=== PATIENT | male | born 1960 | race Two or more races ===

== ENCOUNTER 2019-06-28 01:51 | Emergency (ER) | payer MEDICAID ==
[~2019-06-28] VITALS: Ht 175.3 cm; Wt 80.7 kg
[2019-06-28 02:28] VITALS: BP 173/82
[2019-06-28] MEDS ORDERED: AMLODIPINE 5 MG TABLET ONE (02:28)
[2019-06-28] MEDS ORDERED: ACETAMINOPHEN ES 500 MG TABLET ONE (02:28)
[2019-06-28] MEDS ORDERED: KETOROLAC TROMETHAMINE 15 MG INJ ONE (02:28)
[2019-06-28] MEDS ORDERED: KETOROLAC TROMETHAMINE 15 MG INJ IM ONE (02:30)
[2019-06-28] MEDS ORDERED: AMLODIPINE 5 MG TABLET PO ONE (02:30)
[2019-06-28] MEDS ORDERED: KETOROLAC TROMETHAMINE 30 MG INJ IM ONE (02:30)
[2019-06-28] MEDS ORDERED: ACETAMINOPHEN ES 500 MG TABLET PO ONE (02:30)
--- NOTE | 2019-06-28 02:30 | NUR ---
Patient discharged to home in stable conditon. Written and verbal after care instructions given. Patient verbalizes understanding of instructions. Per DR Copeland OK to DC home.
== END 2019-06-28 02:33 | disposition home or self-care (01) ==
LOC: ER 01:56
DX: H60.92 Unspecified otitis externa, left ear (principal); I10 Essential (primary) hypertension; F17.200 Nicotine dependence, unspecified, uncomplicated
CPT/HCPCS: 96372; 99283; J1885; A4663; A9150

== ENCOUNTER 2019-10-06 15:34 | Emergency (ER) | payer MEDICAID, OTHER ==
[~2019-10-06] VITALS: Ht 175.3 cm; Wt 80.7 kg
[2019-10-06] MEDS ORDERED: HYDROCODONE/APAP 10-325 MG TABLET PO ONE (16:15)
[2019-10-06] MEDS ORDERED: HYDROCODONE/APAP 10-325 MG TABLET ONE (16:20)
--- NOTE | 2019-10-06 16:22 | NUR ---
Patient discharged to home in stable conditon. Patient instructed not to drive when taking medications. Patient instructed to follow up with PCP. Written and verbal after care instructions given. Patient verbalizes understanding of instructions.
== END 2019-10-06 16:22 | disposition home or self-care (01) ==
LOC: ER 15:40
DX: H66.92 Otitis media, unspecified, left ear (principal); H72.92 Unspecified perforation of tympanic membrane, left ear; I10 Essential (primary) hypertension; F17.200 Nicotine dependence, unspecified, uncomplicated
CPT/HCPCS: A4663

== ENCOUNTER 2019-10-13 00:38 | Emergency (ER) | payer OTHER ==
[~2019-10-13] VITALS: Ht 172.7 cm; Wt 76.2 kg
[2019-10-13] MEDS ORDERED: [UNRECOGNIZED DRUG - REMARK] (00:48)
[2019-10-13] MEDS ORDERED: [UNRECOGNIZED DRUG - REMARK] (00:48)
--- NOTE | 2019-10-13 00:55 | NUR ---
Patient walked into ER c/o left earache for several weeks. Came in for worsening earache.
[2019-10-13] MEDS ORDERED: HYDROCODONE/APAP 10-325 MG TABLET ONE (01:00)
[2019-10-13] MEDS ORDERED: HYDROCODONE/APAP 10-325 MG TABLET PO ONE (01:00)
--- NOTE | 2019-10-13 01:04 | NUR ---
Patient discharged to home in stable conditon. Written and verbal after care instructions given. Patient verbalizes understanding of instructions.
[2019-10-13 01:06] VITALS: BP 128/77
== END 2019-10-13 01:07 | disposition home or self-care (01) ==
LOC: ER 00:42
DX: H60.92 Unspecified otitis externa, left ear (principal); I10 Essential (primary) hypertension; F17.200 Nicotine dependence, unspecified, uncomplicated; Z79.899 Other long term (current) drug therapy
CPT/HCPCS: A4663